=== PATIENT | female | born 1970 | race African-American/Black ===

== ENCOUNTER 2018-06-20 17:39 | Observation (INO) | payer OTHER ==
[~2018-06-20] VITALS: Ht 157.5 cm; Wt 94.9 kg
[2018-06-20 17:58] VITALS: BP 127/81; TEMP 98.2; Ht 157.5 cm; Wt 94.9 kg
[2018-06-20 18:01] LABS: PLATELET COUNT 358 K/uL (152-353)
[2018-06-20] MEDS ORDERED: ESTROVE1 PO (18:08)
[2018-06-20 18:20] LABS: POTASSIUM 3.8 mmol/L (3.6-5.2); SODIUM 140 mmol/L (136-145)
[2018-06-20 20:00] VITALS: BP 110/63; TEMP 98.3
[2018-06-21] VITALS: BP 100/51; TEMP 97.4
[2018-06-21 04:00] VITALS: BP 105/56; TEMP 97.6
[2018-06-21 08:07] VITALS: BP 105/63; TEMP 97.7
[2018-06-21 12:05] VITALS: BP 108/63; TEMP 98
[2018-06-21 16:05] VITALS: BP 115/63; TEMP 98.2
== END 2018-06-21 17:45 | disposition home or self-care (01) ==
LOC: MED/SURG 17:39
PROVIDERS: ADMIT Family Medicine
DX: R55 Syncope and collapse (principal); R41.82 Altered mental status, unspecified; H66.92 Otitis media, unspecified, left ear; E11.9 Type 2 diabetes mellitus without complications; R53.1 Weakness; G43.909 Migraine, unspecified, not intractable, without status migrainosus; G44.209 Tension-type headache, unspecified, not intractable; G43.809 Other migraine, not intractable, without status migrainosus
CPT/HCPCS: 36415; 80053; 81000; 82550; 82948; 84484; 85027; 93005; 96365; 96366; 99220; G0378; G0379; J0696; J1885

== ENCOUNTER 2020-11-03 15:12 | Emergency (ER) | payer OTHER ==
[~2020-11-03] VITALS: Ht 157.5 cm; Wt 78.9 kg
[2020-11-03 15:12] VITALS: TEMP 97.5
[~2020-11-03 15:12] MED LIST: ESTROVE1 PO
[2020-11-03 15:52] LABS: PLATELET COUNT 346 K/uL (152-353)
[2020-11-03 16:14] LABS: POTASSIUM 3.9 mmol/L (3.6-5.2)
[2020-11-03 18:44] VITALS: BP 154/73
== END 2020-11-03 18:48 | disposition home or self-care (01) ==
LOC: ED 15:12
PROVIDERS: Emergency Medicine
DX: R10.11 Right upper quadrant pain (principal); K82.8 Other specified diseases of gallbladder
CPT/HCPCS: 80053; 82150; 83690; 85027; 96374; 96375; 99284; J2175; J2405; Q9963

== ENCOUNTER 2020-12-23 10:54 | Outpatient (CLI) | payer OTHER ==
[2020-12-23 11:34] LABS: PLATELET COUNT 373 K/uL (152-353)
[2020-12-23 11:37] LABS: POTASSIUM 4.3 mmol/L (3.6-5.2)
== END 2020-12-23 19:12 | disposition home or self-care (01) ==
LOC: CT 10:54
PROVIDERS: ATTEND Family Medicine
DX: R10.9 Unspecified abdominal pain (principal); R11.0 Nausea; R63.4 Abnormal weight loss; Z98.84 Bariatric surgery status; Z90.49 Acquired absence of other specified parts of digestive tract
CPT/HCPCS: 36415; 80053; 81000; 82150; 83690; 85027; Q9963